=== PATIENT | female | born 1945 | race Caucasian/White ===

== ENCOUNTER 2022-08-03 06:52 | Outpatient (CLI) | payer MEDICARE, OTHER ==
--- NOTE | 2022-08-03 13:13 | Ultrasound Report ---
PROCEDURE: Pelvic w/Transvaginal INDICATIONS: RIGHT LOWER QUAD, PELVIC PAIN TECHNIQUE: Real-time scanning was performed of the pelvic organs, with image documentation. Additional endovagi nal scanning was necessary due to incomplete visualization of the adnexal and endometrial structures by transabdominal scanning. COMPARISON: None. FINDINGS: Uterus: Uterus is retroverted and normal in size at 4.6 x 2.7 x 4.0 cm. The myometrium is heterogen eous. The endometrium measures 8 mm in combined thickness. Endometrium is ill-defined. Ovaries: Bilateral ovaries were not visualized. No definite adnexal masses are seen. Other: No pathologic free abdominal or pelvic fluid. IMPRESSION: 1. Heterogeneous, ill-defined endometrium with borderline thickening at 8 mm. If there is abnormal ut erine bleeding, consider further evaluation with endometrial sampling. 2. Bilateral ovaries not visualized on this examination. Reviewed by: Thanh Chahal MD on 08/03/2022 1:12 PM PST Approved by: Thanh Chahal MD on 08/03/2022 1:12 PM PST Station ID: [id number]
--- NOTE | 2022-08-03 13:15 | Ultrasound Report ---
PROCEDURE: Abdomen Complete INDICATIONS: RIGHT LOWER QUAD, PELVIC PAIN TECHNIQUE: Real-time scanning was performed of the abdominal and retroperitoneal organs, with image documentatio n. COMPARISON: None. FINDINGS: Study limited by moderate overlying bowel gas. Liver: The liver demonstrates diffusely increased echotexture without focal abnormalities which is c onsistent with chronic hepatocellular disease/hepatic steatosis. Gallbladder: Gallbladder is normal in appearance without gallstones, gallbladder wall thickening, or pericholecystic fluid. Negative sonographic Winter's sign. Biliary ducts: Intrahepatic bile ducts are non-dilated. Extrahepatic bile duct caliber measures 7 m m. Normal is 6-7 mm or less in diameter, or 10 mm or less post-cholecystectomy. Pancreas: Visualized portions of the pancreas are sonographically normal. Spleen: Spleen is normal in size and homogeneous in echotexture. Kidneys: Kidneys are normal in size and echotexture. Right kidney measures 10.5 cm long; left kidne y measures 11.8 cm long. No hydronephrosis or nephrolithiasis. No solid masses. Bilateral renal cy sts. Largest on the right measures 1.6 cm. Largest on the left measures 1.3 cm. Aorta: Visualized aorta is normal in caliber at less than 3 cm. Iliacs: Proximal common iliac arteries are normal in caliber at less than 2.5 cm. IVC: Intrahepatic inferior vena cava is patent. Miscellaneous: No free abdominal fluid. IMPRESSION: Study limited secondary to overlying bowel gas. Hepatic steatosis. Bilateral renal cysts measuring up to 1.6 cm on the right and 1.3 cm and the left. Otherwise, no acute sonographic abnormalities identified in the abdomen. Reviewed by: Thanh Chahal MD on 08/03/2022 1:14 PM PST Approved by: Thanh Chahal MD on 08/03/2022 1:14 PM PST Station ID: [id number]
== END 2022-08-03 06:53 | disposition home or self-care (01) ==
LOC: DI 06:52
PROVIDERS: ATTEND Family Medicine
DX: R10.31 Right lower quadrant pain (principal); R10.2 Pelvic and perineal pain; N28.1 Cyst of kidney, acquired; K76.0 Fatty (change of) liver, not elsewhere classified; R93.89 Abnormal findings on diagnostic imaging of other specified body structures

== ENCOUNTER 2024-01-05 22:22 | Outpatient (CLI) | payer MEDICARE, OTHER | END 2024-01-05 23:59 | disposition critical access hospital (66) | LOC: EMS 22:22 | DX: S00.83XA Contusion of other part of head, initial encounter (principal); W01.198A Fall on same level from slipping, tripping and stumbling with subsequent striking against other object, initial encounter; Y92.009 Unspecified place in unspecified non-institutional (private) residence as the place of occurrence of the external cause; R42 Dizziness and giddiness; R47.81 Slurred speech; F10.90 Alcohol use, unspecified, uncomplicated | CPT/HCPCS: A0425; A0429 ==

== ENCOUNTER 2024-01-05 22:32 | Emergency (ER) | payer MEDICARE, OTHER ==
--- NOTE | 2024-01-05 23:53 | CT Report ---
PROCEDURE: Head WO INDICATIONS: fall from standing +forehead HT no LOC no AC +etoh TECHNIQUE: Noncontrast 4.5 mm thick angled axial sections acquired from the foramen magnum to the vertex. For r adiation dose reduction, the following was used: automated exposure control, adjustment of mA and/or kV according to patient size. COMPARISON: None. FINDINGS: Image quality: Excellent. CSF spaces: Basal cisterns are patent. No extra-axial fluid collections. Ventricles are normal in size and shape. Brain: No midline shift. No intracranial masses or hemorrhage. Age-related global volume loss and chronic microvascular ischemic changes. Intracranial atherosclerotic vascular calcifications. Godwin-w francie matter interface is normal. Skull and face: Small right frontal scalp hematoma. Calvarium and visualized facial bones are intact , without suspicious lesions. Sinuses: Visualized sinuses and mastoids are clear. IMPRESSION: No acute intracranial pathology. Reviewed by: Duong Cifuentes MD on 01/05/2024 11:52 PM PDT Approved by: Duong Cifuentes MD on 01/05/2024 11:52 PM PDT Station ID: [id number]
--- NOTE | 2024-01-05 23:55 | CT Report ---
PROCEDURE: Cervical Spine WO INDICATIONS: fall from standing TECHNIQUE: Noncontrast 3 mm thick sections acquired from the skull base to the T4 level. Sagittal and coronal r eformats were then constructed. For radiation dose reduction, the following was used: automated exp osure control, adjustment of mA and/or kV according to patient size. COMPARISON: None. FINDINGS: Image quality: Excellent. Bones: No fractures or dislocations. Multilevel degenerative changes cervical spine, most severe at C5-C6. 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 Visualized superior ribs are intact. Soft tissues: Prevertebral soft tissues are normal in thickness. No paravertebral hematomas. No ap ical pneumothoraces. IMPRESSION: No acute, displaced fracture or traumatic subluxation. Reviewed by: Duong Cifuentes MD on 01/05/2024 11:54 PM PDT Approved by: Duong Cifuentes MD on 01/05/2024 11:54 PM PDT Station ID: [id number]
--- NOTE | 2024-01-06 01:52 | ED Physician Documentation ---
History of Present Illness - Stated complaint Stated Complaint: FALL/HEAD PX - Chief complaint Chief Complaint: Trauma Hd/Nk - History obtained from History obtained from: Patient, EMS - Additonal information Additional information: 78yF not on blood thinners or AC presents s/p mechanical fall from standing, hitting R forehead with no LOC. patient had a bottle of wine tonight. denies other injury. denies nausea, dizziness, vision changes or FND. PD PAST MEDICAL HISTORY - Past Medical History Past Medical History: Yes Cardiovascular: Hypertension, High cholesterol Respiratory: None GI: None Musculoskeletal: None Derm: None - Past Surgical History Past Surgical History: No - Allergies Allergies/Adverse Reactions: Allergies Allergy/AdvReac Type Severity Reaction Status Date / Time Sulfa (Sulfonamide Allergy Intermediate Hives Verified 01/05/24 22:37 Antibiotics) - Social History Does the pt smoke?: No Smoking Status: Never smoker Does the pt drink ETOH?: Yes ETOH Use: Wine Does the pt have substance abuse?: No PD ED PE NORMAL - Vitals Vital signs reviewed: Yes - General General: Alert and oriented X 3, No acute distress, Well developed/nourished - HEENT HEENT: Atraumatic, PERRL, EOMI, Other (R forehead hematoma) - Neck Neck: No bony TTP - Cardiac Cardiac: RRR - Respiratory Respiratory: No respiratory distress, Clear bilaterally - Abdomen Abdomen: Non tender, Non distended - Back Back: No spinal TTP - Derm Derm: Normal color, Warm and dry - Neuro Eye Opening: Spontaneous Motor: Obeys Commands Verbal: Oriented GCS Score: 15 Results - Vitals Vitals: Vital Signs - 24 hr 01/05/24 22:28 Temperature 36.4 C L Heart Rate 63 Respiratory 14 Rate Blood Pressure 141/79 H O2 Saturation 95 Oxygen O2 Source Room air PD Medical Decision Making - ED course ED course: 78yF p/w fall from standing without loc +HT not on AC or blood thinners with normal exam. CT head and c spine negative. c collar in place on arrival and removed prior to dc. return precautions given. partner will take her home. Departure - Departure Disposition: 01 Home, Self Care Clinical Impression: Head injury, Alcohol dependence, Fall from standing Condition: Stable Instructions: ED Head Injury Closed, Alcoholism Comments: You were seen in the emergency department for medical evaluation after a fall. Your head and cervical spine imaging looked normal. Please follow-up with your primary care provider and return to the emergency department if you have any new or worsening symptoms or other concerns.
[2024-01-06 02:45] VITALS: BP 143/72; O2SAT 96
== END 2024-01-06 02:42 | disposition home or self-care (01) ==
LOC: EDUNIT# → EDBD → ED 22:32
DX: S09.90XA Unspecified injury of head, initial encounter (principal); W18.30XA Fall on same level, unspecified, initial encounter; F10.20 Alcohol dependence, uncomplicated; I10 Essential (primary) hypertension; E78.00 Pure hypercholesterolemia, unspecified
CPT/HCPCS: 99283; 99284